=== PATIENT | male | born 2000 | race Caucasian/White ===

== ENCOUNTER → 2020-03-28 | Outpatient (CLI) | payer MEDICAID ==
[2020-03-28 10:39] LABS: BASOPHILS % (AUTO) 0.4 % (0.0-2.0); EOSINOPHILS % (AUTO) 1.2 % (1.0-6.0); HEMATOCRIT 46.6 % (41-53); HEMOGLOBIN 15.8 g/dL (13.5-17.5); LYMPHOCYTES # (AUTO) 1.4 K/uL (1.0-4.8); LYMPHOCYTES % (AUTO) 24.5 % (22.0-44.0); MEAN CORPUSCULAR HEMOGLOBIN 31.8 pg (26.0-34.0); MEAN CORPUSCULAR VOLUME 94 fL (80-100); MONOCYTES # (AUTO) 0.5 K/uL (0.1-1.0); MONOCYTES % (AUTO) 9.2 % (2.0-9.0); NEUTROPHILS # (AUTO) 3.8 K/uL (1.8-7.7); NEUTROPHILS % (AUTO) 64.7 % (40.0-70.0); PLATELET COUNT (AUTO) 233 K/uL (150-450); RED BLOOD CELL COUNT(AUTO) 4.98 MIL/uL (4.50-5.90); RED CELL DISTRIBUTION WIDTH 13.5 % (11.5-14.5)
[2020-03-28 11:08] LABS: ALANINE AMINOTRANSFERASE 71 U/L (12-78); ALBUMIN 4.2 g/dL (3.4-5.0); ALKALINE PHOSPHATASE 87 U/L (46-116); ANION GAP 8 mmol/L (8-16); ASPARTATE AMINOTRANSFERASE 24 U/L (15-37); BILIRUBIN,TOTAL 0.3 mg/dL (0.1-1.0); CALCIUM, TOTAL 9.3 mg/dL (8.8-10.5); CARBON DIOXIDE 31 mmol/L (22-29); CHLORIDE 102 mmol/L (98-107); CHOL/HDL RATIO 2.9 (4.2-7.3); CHOLESTEROL 179 mg/dL (131-200); CREATININE 1.09 mg/dL (0.60-1.30); GLOMERULAR FILTR. RATE CALC > 60 mL/min (>60); GLUCOSE,RANDOM 92 mg/dL (70-110); HDL CHOLESTEROL 62 mg/dL (40-60); LDL CHOL (CALC.) 93 mg/dL (0-130); POTASSIUM 3.9 mmol/L (3.5-5.1); SODIUM SERUM 141 mmol/L (136-145); TOTAL PROTEIN, SERUM 7.8 g/dL (6.4-8.2); TRIGLYCERIDES 121 mg/dL (15-150); UREA NITROGEN, BLOOD 6 mg/dL (7-18)
== END | disposition home or self-care (01) ==
LOC: LABPV 09:14
DX: F29 Unspecified psychosis not due to a substance or known physiological condition (principal); T43.9 Poisoning by, adverse effect of and underdosing of unspecified psychotropic drug
CPT/HCPCS: 82248; 84443

== ENCOUNTER 2021-12-20 16:11 | Emergency (ER) | payer MEDICAID, OTHER ==
[~2021-12-20] VITALS: Ht 180.3 cm; Wt 141.8 kg
[2021-12-20 16:50] VITALS: BP 128/86
== END 2021-12-20 18:24 | disposition home or self-care (01) ==
LOC: EMS 16:19
DX: T16.2XXA Foreign body in left ear, initial encounter (principal); W45.8XXA Other foreign body or object entering through skin, initial encounter; Y93.89 Activity, other specified; Y92.830 Public park as the place of occurrence of the external cause; Y99.8 Other external cause status
CPT/HCPCS: 69200; 99284; Z7502

== ENCOUNTER 2024-07-06 16:26 | Emergency (ER) | payer OTHER ==
[~2024-07-06] VITALS: Ht 172.7 cm; Wt 138.6 kg
[2024-07-06 16:33] VITALS: BP 158/90; PULSE 88; RESP 19; TEMP 97.6; O2SAT 99
== END 2024-07-06 19:10 | disposition home or self-care (01) ==
LOC: EMS 16:26
DX: F20.0 Paranoid schizophrenia (principal)
CPT/HCPCS: 99281; Z7502

== ENCOUNTER 2024-10-12 08:49 | Emergency (ER) | payer OTHER ==
[~2024-10-12] VITALS: Ht 172.7 cm; Wt 142.7 kg
[2024-10-12 08:51] VITALS: BP 160/77; PULSE 105; RESP 16; TEMP 98.3; O2SAT 98
[2024-10-12] MEDS: IBUPROFEN 600 MG TABLET PO ONE (09:53)
[2024-10-12] MEDS: ACETAMINOPHEN 500 MG TABLET PO ONE (09:53)
[2024-10-12] MEDS: HALOPERIDOL 5 MG TABLET PO ONE (10:16)
== END 2024-10-12 10:53 | disposition home or self-care (01) ==
LOC: EMS 08:56
DX: F20.9 Schizophrenia, unspecified (principal); R51.9 Headache, unspecified; E78.00 Pure hypercholesterolemia, unspecified
CPT/HCPCS: 99284; Z7502; Z7610